=== PATIENT | male | born 1960 | race African-American/Black ===

== ENCOUNTER 2017-06-19 23:11 | Inpatient (IN) | payer OTHER ==
[2017-06-20 01:10] LABS: ADD MAN DIFF? NO
[2017-06-20 01:26] LABS: WHITE BLOOD COUNT 5.4 10^3/ul (4.8-10.8)
[2017-06-20 01:26] LABS: BASOPHILS % 0.2 % (0.0-2.0); EOSINOPHILS % 0.7 % (0.0-7.0); HEMATOCRIT 37.3 % (42.0-52.0); HEMOGLOBIN 12.4 g/dl (14.0-18.0); LYMPHOCYTES # 1.3 10^3/ul (0.8-2.9); LYMPHOCYTES % 23.9 % (15.0-51.0); MEAN CORPUSCULAR HGB CONC 33.2 g/dl (32.0-37.0); MEAN CORPUSCULAR VOLUME 93.3 fl (82.0-101.0); MEAN PLATELET VOLUME 11.4 fl (7.4-10.4); MONOCYTE # 0.5 10^3/ul (0.3-0.9); MONOCYTES % 9.7 % (0.0-11.0); NEUTROPHIL # 3.5 10^3/ul (1.6-7.5); NEUTROPHILS % 65.3 % (39.0-77.0); PLATELET COUNT 177 10^3/UL (140-415); RED CELL DISTRIBUTION WIDTH 12.7 % (11.5-14.5)
[2017-06-20 01:41] LABS: PROTIME 13.3 Sec (11.9-14.9)
[2017-06-20 01:42] LABS: PARTIAL THROMBOPLASTIN TIME 37.4 Sec (25.0-35.0)
[2017-06-20 01:43] LABS: ALBUMIN/GLOBULIN RATIO 1.37; ANION GAP 11 (8-16)
[2017-06-20 01:48] LABS: ALANINE AMINOTRANSFERASE 32 IU/L (13-69); ALKALINE PHOSPHATASE 77 IU/L (42-121); ASPARTATE AMINO TRANSFERASE 31 IU/L (15-46); BILIRUBIN,INDIRECT 0.1 mg/dl (0-1.1); BILIRUBIN,TOTAL 0.1 mg/dl (0.2-1.3); BLOOD UREA NITROGEN 19 mg/dl (7-20); CALCIUM 9.4 mg/dl (8.4-10.2); CARBON DIOXIDE 31 mmol/L (21-31); CHLORIDE 104 mmol/L (97-110); CREATININE 1.06 mg/dl (0.61-1.24); GLUCOSE 98 mg/dl (70-220); SODIUM 142 mmol/L (135-144); TOTAL PROTEIN 6.9 g/dl (6.1-8.1)
[2017-06-20] MEDS ORDERED: LORAZEPAM 2 MG INJ IV (05:30)
[2017-06-20] MEDS ORDERED: HYDROmorphONE 0.5 MG/0.5 ML SYG IV (05:30)
[2017-06-20] MEDS ORDERED: HYDROCODONE/APAP (5/325) TAB PO (05:30)
[2017-06-20] MEDS ORDERED: NACL 0.9% 3 ML SYG IV (05:30)
[2017-06-20] MEDS ORDERED: ZOLPIDEM 5 MG TAB PO (05:30)
[2017-06-20] MEDS: SOD CHLORIDE 0.9% 1,000 ML IV ×3 (07:45→20:49)
[2017-06-20] MEDS: ONDANSETRON 4 MG INJ IV (08:43)
[2017-06-20] MEDS: FAMOTIDINE 20 MG INJ IV ×2 (08:43→20:36)
[2017-06-20] MEDS: HYDROmorphONE 0.5 MG/0.5 ML SYG IV ×3 (08:44→20:50)
[2017-06-20 12:53] LABS: HEMATOCRIT 38.6 % (42.0-52.0); HEMOGLOBIN 12.8 g/dl (14.0-18.0)
[2017-06-20] MEDS: DOCUSATE SODIUM 100 MG CAP PO (20:50)
[2017-06-21] MEDS: HYDROmorphONE 0.5 MG/0.5 ML SYG IV ×3 (04:24→23:48)
[2017-06-21 06:23] LABS: ADD MAN DIFF? NO
[2017-06-21] MEDS: SOD CHLORIDE 0.9% 1,000 ML IV ×2 (06:34→21:58)
[2017-06-21 06:35] LABS: HEMATOCRIT 39.1 % (42.0-52.0); HEMOGLOBIN 13.1 g/dl (14.0-18.0); MEAN CORPUSCULAR HEMOGLOBIN 31.4 pg (29.0-33.0); MEAN CORPUSCULAR HGB CONC 33.5 g/dl (32.0-37.0); MEAN CORPUSCULAR VOLUME 93.8 fl (82.0-101.0); PLATELET COUNT 181 10^3/UL (140-415); RED BLOOD COUNT 4.17 10^6/ul (4.70-6.10); RED CELL DISTRIBUTION WIDTH 12.3 % (11.5-14.5)
[2017-06-21 06:35] LABS: WHITE BLOOD COUNT 6.3 10^3/ul (4.8-10.8)
[2017-06-21 06:36] LABS: BASOPHILS % 0.2 % (0.0-2.0); EOSINOPHILS % 0.6 % (0.0-7.0); LYMPHOCYTES # 1.7 10^3/ul (0.8-2.9); LYMPHOCYTES % 26.2 % (15.0-51.0); MEAN PLATELET VOLUME 11.9 fl (7.4-10.4); MONOCYTE # 0.6 10^3/ul (0.3-0.9); MONOCYTES % 9.5 % (0.0-11.0); NEUTROPHILS % 63.3 % (39.0-77.0)
[2017-06-21 06:56] LABS: ALANINE AMINOTRANSFERASE 34 IU/L (13-69); ALBUMIN 3.7 g/dl (3.3-4.9); ALBUMIN/GLOBULIN RATIO 1.15; ALKALINE PHOSPHATASE 70 IU/L (42-121); ANION GAP 11 (8-16); ASPARTATE AMINO TRANSFERASE 30 IU/L (15-46); BILIRUBIN,INDIRECT 0.3 mg/dl (0-1.1); BILIRUBIN,TOTAL 0.3 mg/dl (0.2-1.3); BLOOD UREA NITROGEN 9 mg/dl (7-20); CARBON DIOXIDE 32 mmol/L (21-31); CHLORIDE 103 mmol/L (97-110); CHOLESTEROL 189 mg/dl (100-200); CREATININE 0.77 mg/dl (0.61-1.24); GLUCOSE 110 mg/dl (70-220); HDL CHOLESTEROL 61 mg/dl (28-71); LDL CHOLESTEROL,CALCULATED 119 mg/dl; POTASSIUM 4.1 mmol/L (3.5-5.1); SODIUM 142 mmol/L (135-144); TOTAL PROTEIN 6.9 g/dl (6.1-8.1); TRIGLYCERIDES 45 mg/dl (0-149)
[2017-06-21 06:58] LABS: ANION GAP 12 (8-16); BLOOD UREA NITROGEN 10 mg/dl (7-20); CALCIUM 8.6 mg/dl (8.4-10.2); CARBON DIOXIDE 31 mmol/L (21-31); CHLORIDE 103 mmol/L (97-110); GLUCOSE 108 mg/dl (70-220); POTASSIUM 4.2 mmol/L (3.5-5.1); SODIUM 142 mmol/L (135-144)
[2017-06-21] MEDS: ACETAMINOPHEN 325 MG TAB PO (08:15)
[2017-06-21] MEDS: FAMOTIDINE 20 MG INJ IV ×2 (08:16→21:58)
[2017-06-21] MEDS: LIDOCAINE 1% (MPF) 5 ML VIAL SC (09:56)
[2017-06-21] MEDS ORDERED: LORAZEPAM 2 MG INJ IV (11:30)
[2017-06-22 05:17] LABS: ADD MAN DIFF? NO
[2017-06-22 05:20] LABS: BASOPHILS % 0.2 % (0.0-2.0); EOSINOPHILS % 0.9 % (0.0-7.0); HEMATOCRIT 37.9 % (42.0-52.0); HEMOGLOBIN 12.5 g/dl (14.0-18.0); LYMPHOCYTES # 1.1 10^3/ul (0.8-2.9); LYMPHOCYTES % 24.9 % (15.0-51.0); MEAN CORPUSCULAR HEMOGLOBIN 30.7 pg (29.0-33.0); MEAN CORPUSCULAR VOLUME 93.1 fl (82.0-101.0); MEAN PLATELET VOLUME 11.8 fl (7.4-10.4); MONOCYTE # 0.6 10^3/ul (0.3-0.9); MONOCYTES % 12.6 % (0.0-11.0); NEUTROPHIL # 2.7 10^3/ul (1.6-7.5); NEUTROPHILS % 61.2 % (39.0-77.0); PLATELET COUNT 168 10^3/UL (140-415); RED BLOOD COUNT 4.07 10^6/ul (4.70-6.10); RED CELL DISTRIBUTION WIDTH 12.3 % (11.5-14.5)
[2017-06-22 05:20] LABS: WHITE BLOOD COUNT 4.5 10^3/ul (4.8-10.8)
[2017-06-22 05:49] LABS: ALANINE AMINOTRANSFERASE 32 IU/L (13-69); ALBUMIN 3.8 g/dl (3.3-4.9); ALBUMIN/GLOBULIN RATIO 1.31; ALKALINE PHOSPHATASE 71 IU/L (42-121); ANION GAP 12 (8-16); ASPARTATE AMINO TRANSFERASE 28 IU/L (15-46); BILIRUBIN,INDIRECT 0.3 mg/dl (0-1.1); BILIRUBIN,TOTAL 0.3 mg/dl (0.2-1.3); BLOOD UREA NITROGEN 9 mg/dl (7-20); CALCIUM 8.6 mg/dl (8.4-10.2); CARBON DIOXIDE 32 mmol/L (21-31); CHLORIDE 102 mmol/L (97-110); CREATININE 0.79 mg/dl (0.61-1.24); GLUCOSE 112 mg/dl (70-220); POTASSIUM 3.8 mmol/L (3.5-5.1); SODIUM 142 mmol/L (135-144); TOTAL PROTEIN 6.7 g/dl (6.1-8.1)
[2017-06-22] MEDS: SOD CHLORIDE 0.9% 1,000 ML IV ×2 (06:34→16:52)
[2017-06-22] MEDS: GUAIFENESIN/CODEINE 5ML CUP PO ×2 (06:36→16:59)
[2017-06-22] MEDS: HYDROmorphONE 0.5 MG/0.5 ML SYG IV ×4 (06:37→23:01)
[2017-06-22] MEDS: FAMOTIDINE 20 MG INJ IV ×2 (09:05→20:25)
[2017-06-22] MEDS: ALBUTEROL/IPRATROPIUM (NEB) 3 ML AMP HHN ×2 (09:25→20:07)
[2017-06-22] MEDS: DEXAMETHASONE 4 MG TAB PO (16:52)
[2017-06-23] MEDS: SOD CHLORIDE 0.9% 1,000 ML IV ×2 (05:11→14:35)
[2017-06-23] MEDS: DEXAMETHASONE 4 MG TAB PO ×2 (05:11→20:31)
[2017-06-23] MEDS: HYDROmorphONE 0.5 MG/0.5 ML SYG IV ×5 (05:12→22:08)
[2017-06-23] MEDS: FAMOTIDINE 20 MG INJ IV ×2 (08:32→20:31)
[2017-06-23] MEDS: GUAIFENESIN/CODEINE 5ML CUP PO ×2 (09:56→18:21)
[2017-06-23] MEDS: ALBUTEROL/IPRATROPIUM (NEB) 3 ML AMP HHN ×2 (10:07→16:05)
[2017-06-23] MEDS ORDERED: DIPHENHYDRAMINE 50 MG INJ IV (11:00)
[2017-06-23] MEDS ORDERED: ONDANSETRON INJ 16 MG, DEXAMETHASONE 4 MG/ML 10 MG in SOD CHLORIDE 0.9% 50 ML IVPB (11:00)
[2017-06-23] MEDS: ONDANSETRON INJ 16 MG, DEXAMETHASONE 4 MG/ML 10 MG in SOD CHLORIDE 0.9% 50 ML IVPB (17:19)
[2017-06-23] MEDS: DIPHENHYDRAMINE 50 MG INJ IV (17:29)
[2017-06-23] MEDS: DOCETAXEL IV (17:51)
[2017-06-23] MEDS: DEXTROSE 5% IV (17:51)
[2017-06-23] MEDS: CISPLATIN IVPB (20:49)
[2017-06-23] MEDS: SOD CHLORIDE 0.9% IVPB (20:49)
[2017-06-24] MEDS: SOD CHLORIDE 0.9% IV (00:02)
[2017-06-24] MEDS: FLUOROURACIL IV (00:02)
[2017-06-24] MEDS: ALBUTEROL/IPRATROPIUM (NEB) 3 ML AMP HHN ×3 (00:41→23:44)
[2017-06-24] MEDS: GUAIFENESIN/CODEINE 5ML CUP PO ×2 (01:57→12:59)
[2017-06-24] MEDS: HYDROmorphONE 0.5 MG/0.5 ML SYG IV ×4 (02:00→18:38)
[2017-06-24] MEDS: SOD CHLORIDE 0.9% 1,000 ML IV ×3 (03:00→23:27)
[2017-06-24 05:43] LABS: WHITE BLOOD COUNT 4.9 10^3/ul (4.8-10.8)
[2017-06-24 05:43] LABS: ADD MAN DIFF? NO; HEMATOCRIT 37.2 % (42.0-52.0); HEMOGLOBIN 12.3 g/dl (14.0-18.0); LYMPHOCYTES # 0.6 10^3/ul (0.8-2.9); LYMPHOCYTES % 12.2 % (15.0-51.0); MEAN CORPUSCULAR HGB CONC 33.1 g/dl (32.0-37.0); MEAN CORPUSCULAR VOLUME 93.7 fl (82.0-101.0); MEAN PLATELET VOLUME 12.4 fl (7.4-10.4); MONOCYTE # 0.1 10^3/ul (0.3-0.9); MONOCYTES % 2.2 % (0.0-11.0); NEUTROPHIL # 4.2 10^3/ul (1.6-7.5); NEUTROPHILS % 85.4 % (39.0-77.0); PLATELET COUNT 171 10^3/UL (140-415); RED BLOOD COUNT 3.97 10^6/ul (4.70-6.10); RED CELL DISTRIBUTION WIDTH 12.4 % (11.5-14.5)
[2017-06-24 06:28] LABS: ALANINE AMINOTRANSFERASE 27 IU/L (13-69); ALBUMIN/GLOBULIN RATIO 1.37; ALKALINE PHOSPHATASE 75 IU/L (42-121); ANION GAP 13 (8-16); ASPARTATE AMINO TRANSFERASE 25 IU/L (15-46); BLOOD UREA NITROGEN 9 mg/dl (7-20); CALCIUM 8.4 mg/dl (8.4-10.2); CARBON DIOXIDE 31 mmol/L (21-31); CHLORIDE 105 mmol/L (97-110); CREATININE 0.72 mg/dl (0.61-1.24); GLUCOSE 132 mg/dl (70-220); POTASSIUM 4.2 mmol/L (3.5-5.1); SODIUM 145 mmol/L (135-144); TOTAL PROTEIN 6.9 g/dl (6.1-8.1)
[2017-06-24 06:35] LABS: PHOSPHORUS 4.2 mg/dl (2.5-4.9)
[2017-06-24] MEDS: FAMOTIDINE 20 MG INJ IV ×2 (09:34→21:28)
[2017-06-24] MEDS: DEXAMETHASONE 4 MG TAB PO ×2 (09:34→21:27)
[2017-06-24] MEDS: DIPHENHYD/MYLANTA/LIDO (PO SYG) PO ×2 (13:59→23:40)
[2017-06-24] MEDS: DIPHENHYDRAMINE 50 MG INJ IV (23:27)
[2017-06-24] MEDS: ONDANSETRON INJ 16 MG, DEXAMETHASONE 4 MG/ML 10 MG in SOD CHLORIDE 0.9% 50 ML IVPB (23:28)
[2017-06-25] MEDS: FLUOROURACIL IV (00:24)
[2017-06-25] MEDS: SOD CHLORIDE 0.9% IV (00:24)
[2017-06-25 05:08] LABS: ADD MAN DIFF? NO
[2017-06-25 05:16] LABS: WHITE BLOOD COUNT 5.7 10^3/ul (4.8-10.8)
[2017-06-25 05:16] LABS: ABNORMAL IP MESSAGE 1; HEMATOCRIT 37.6 % (42.0-52.0); HEMOGLOBIN 12.6 g/dl (14.0-18.0); LYMPHOCYTES # 0.4 10^3/ul (0.8-2.9); LYMPHOCYTES % 7.3 % (15.0-51.0); MEAN CORPUSCULAR HGB CONC 33.5 g/dl (32.0-37.0); MEAN CORPUSCULAR VOLUME 92.6 fl (82.0-101.0); MEAN PLATELET VOLUME 12.5 fl (7.4-10.4); MONOCYTE # 0.2 10^3/ul (0.3-0.9); MONOCYTES % 3.1 % (0.0-11.0); NEUTROPHIL # 5.1 10^3/ul (1.6-7.5); NEUTROPHILS % 89.3 % (39.0-77.0); PLATELET COUNT 135 10^3/UL (140-415); POSITIVE DIFF @See below; RED BLOOD COUNT 4.06 10^6/ul (4.70-6.10); RED CELL DISTRIBUTION WIDTH 12.5 % (11.5-14.5)
[2017-06-25 05:36] LABS: ANION GAP 9 (8-16); BLOOD UREA NITROGEN 14 mg/dl (7-20); CALCIUM 8.6 mg/dl (8.4-10.2); CARBON DIOXIDE 34 mmol/L (21-31); CHLORIDE 102 mmol/L (97-110); CREATININE 0.79 mg/dl (0.61-1.24); GLUCOSE 134 mg/dl (70-220); POTASSIUM 4.3 mmol/L (3.5-5.1); SODIUM 141 mmol/L (135-144)
[2017-06-25 05:37] LABS: MAGNESIUM 2.1 mg/dl (1.7-2.5)
[2017-06-25 05:37] LABS: PHOSPHORUS 3.8 mg/dl (2.5-4.9)
[2017-06-25] MEDS: SOD CHLORIDE 0.9% 1,000 ML IV ×3 (09:00→19:00)
[2017-06-25] MEDS: DEXAMETHASONE 4 MG TAB PO ×2 (09:00→14:14)
[2017-06-25] MEDS: HYDROmorphONE 0.5 MG/0.5 ML SYG IV ×4 (09:01→23:22)
[2017-06-25] MEDS: FAMOTIDINE 20 MG INJ IV ×2 (09:02→21:42)
[2017-06-25] MEDS ORDERED: LIDOCAINE 1% (MPF) 30 ML INJ (10:29)
[2017-06-25] MEDS ORDERED: MIDAZOLAM 1 MG/ML 2 ML INJ (10:58)
[2017-06-25] MEDS ORDERED: FENTAnyl 50 MCG/ML VIAL (11:04)
[2017-06-25] MEDS ORDERED: hydrALAzine 20 MG INJ (11:25)
[2017-06-25] MEDS: BUPIVACAINE 0.5% (SDV) 30 ML INJ (11:39)
[2017-06-25] MEDS: HEPARIN 1000 UNITS/ML 10 ML INJ (11:40)
[2017-06-25] MEDS: LIDOCAINE 1%/EPI 30 ML INJ (11:40)
[2017-06-25] MEDS ORDERED: HYDROmorphONE (0.2 MG/ML) 10ML SYG IV (13:00)
[2017-06-25] MEDS: DIPHENHYD/MYLANTA/LIDO (PO SYG) PO (14:14)
[2017-06-25] MEDS: GUAIFENESIN/CODEINE 5ML CUP PO (14:22)
[2017-06-25] MEDS: DIPHENHYDRAMINE 50 MG INJ IV (23:22)
[2017-06-25] MEDS: ONDANSETRON INJ 16 MG, DEXAMETHASONE 4 MG/ML 10 MG in SOD CHLORIDE 0.9% 50 ML IVPB (23:22)
[2017-06-26] MEDS: ALBUTEROL/IPRATROPIUM (NEB) 3 ML AMP HHN ×5 (00:41→23:01)
[2017-06-26] MEDS: SOD CHLORIDE 0.9% IV (01:13)
[2017-06-26] MEDS: FLUOROURACIL IV (01:13)
[2017-06-26] MEDS: SOD CHLORIDE 0.9% 1,000 ML IV ×2 (02:15→12:14)
[2017-06-26 05:39] LABS: ADD MAN DIFF? NO
[2017-06-26 05:43] LABS: ABNORMAL IP MESSAGE 1; HEMATOCRIT 37.9 % (42.0-52.0); HEMOGLOBIN 12.5 g/dl (14.0-18.0); LYMPHOCYTES # 0.3 10^3/ul (0.8-2.9); LYMPHOCYTES % 6.2 % (15.0-51.0); MEAN CORPUSCULAR HEMOGLOBIN 30.6 pg (29.0-33.0); MEAN CORPUSCULAR VOLUME 92.9 fl (82.0-101.0); MEAN PLATELET VOLUME 13.2 fl (7.4-10.4); MONOCYTE # 0.1 10^3/ul (0.3-0.9); MONOCYTES % 1.2 % (0.0-11.0); NEUTROPHIL # 4.6 10^3/ul (1.6-7.5); PLATELET COUNT 111 10^3/UL (140-415); POSITIVE DIFF @See below; RED BLOOD COUNT 4.08 10^6/ul (4.70-6.10); RED CELL DISTRIBUTION WIDTH 12.4 % (11.5-14.5)
[2017-06-26 06:26] LABS: PHOSPHORUS 3.3 mg/dl (2.5-4.9)
[2017-06-26 06:34] LABS: ANION GAP 12 (8-16); BLOOD UREA NITROGEN 14 mg/dl (7-20); CALCIUM 8.3 mg/dl (8.4-10.2); CARBON DIOXIDE 31 mmol/L (21-31); CHLORIDE 100 mmol/L (97-110); CREATININE 0.73 mg/dl (0.61-1.24); GLUCOSE 153 mg/dl (70-220); SODIUM 139 mmol/L (135-144)
[2017-06-26] MEDS: FAMOTIDINE 20 MG INJ IV ×2 (09:40→20:38)
[2017-06-26] MEDS: HYDROmorphONE 0.5 MG/0.5 ML SYG IV ×4 (09:43→23:57)
[2017-06-26] MEDS: MAGNESIUM HYDROXIDE 30ML CUP PO (15:15)
[2017-06-26] MEDS: DIPHENHYD/MYLANTA/LIDO (PO SYG) PO ×2 (18:38→23:57)
[2017-06-26] MEDS: ONDANSETRON INJ 16 MG, DEXAMETHASONE 4 MG/ML 10 MG in SOD CHLORIDE 0.9% 50 ML IVPB (23:57)
[2017-06-26] MEDS: DIPHENHYDRAMINE 50 MG INJ IV (23:58)
[2017-06-27] MEDS: SOD CHLORIDE 0.9% IV (00:55)
[2017-06-27] MEDS: FLUOROURACIL IV (00:55)
[2017-06-27] MEDS: SOD CHLORIDE 0.9% 1,000 ML IV ×3 (02:45→21:23)
[2017-06-27] MEDS: HYDROmorphONE 0.5 MG/0.5 ML SYG IV ×2 (05:20→12:27)
[2017-06-27] MEDS: CIPROFLOXACIN 500 MG TAB PO ×2 (05:22→17:07)
[2017-06-27 05:47] LABS: ADD MAN DIFF? NO
[2017-06-27 05:56] LABS: ABNORMAL IP MESSAGE 1; HEMATOCRIT 36.3 % (42.0-52.0); LYMPHOCYTES # 0.4 10^3/ul (0.8-2.9); LYMPHOCYTES % 6.6 % (15.0-51.0); MEAN CORPUSCULAR HEMOGLOBIN 30.8 pg (29.0-33.0); MEAN CORPUSCULAR HGB CONC 33.1 g/dl (32.0-37.0); MEAN CORPUSCULAR VOLUME 93.1 fl (82.0-101.0); MEAN PLATELET VOLUME 12.8 fl (7.4-10.4); MONOCYTE # 0.2 10^3/ul (0.3-0.9); MONOCYTES % 2.6 % (0.0-11.0); NEUTROPHIL # 5.6 10^3/ul (1.6-7.5); NEUTROPHILS % 90.5 % (39.0-77.0); PLATELET COUNT 114 10^3/UL (140-415); POSITIVE DIFF @See below; RED CELL DISTRIBUTION WIDTH 12.2 % (11.5-14.5)
[2017-06-27 05:56] LABS: WHITE BLOOD COUNT 6.2 10^3/ul (4.8-10.8)
[2017-06-27 06:23] LABS: PHOSPHORUS 2.9 mg/dl (2.5-4.9)
[2017-06-27 06:23] LABS: ANION GAP 9 (8-16); BLOOD UREA NITROGEN 17 mg/dl (7-20); CARBON DIOXIDE 35 mmol/L (21-31); CHLORIDE 99 mmol/L (97-110); CREATININE 0.75 mg/dl (0.61-1.24); GLUCOSE 157 mg/dl (70-220); SODIUM 139 mmol/L (135-144)
[2017-06-27] MEDS: FAMOTIDINE 20 MG INJ IV ×2 (08:30→21:17)
[2017-06-27] MEDS: ONDANSETRON INJ 16 MG, DEXAMETHASONE 4 MG/ML 10 MG in SOD CHLORIDE 0.9% 50 ML IVPB (11:00)
[2017-06-28] MEDS: DIPHENHYDRAMINE 50 MG INJ IV (00:23)
[2017-06-28] MEDS: FLUOROURACIL IV (00:40)
[2017-06-28] MEDS: SOD CHLORIDE 0.9% IV (00:40)
[2017-06-28 04:55] LABS: ADD MAN DIFF? NO
[2017-06-28 04:57] LABS: ABNORMAL IP MESSAGE 1; EOSINOPHILS % 0.2 % (0.0-7.0); HEMATOCRIT 36.2 % (42.0-52.0); HEMOGLOBIN 12.4 g/dl (14.0-18.0); LYMPHOCYTES # 0.4 10^3/ul (0.8-2.9); LYMPHOCYTES % 9.2 % (15.0-51.0); MEAN CORPUSCULAR HEMOGLOBIN 31.3 pg (29.0-33.0); MEAN CORPUSCULAR HGB CONC 34.3 g/dl (32.0-37.0); MEAN CORPUSCULAR VOLUME 91.4 fl (82.0-101.0); MEAN PLATELET VOLUME 13.3 fl (7.4-10.4); MONOCYTE # 0.1 10^3/ul (0.3-0.9); MONOCYTES % 1.5 % (0.0-11.0); NEUTROPHIL # 4.1 10^3/ul (1.6-7.5); NEUTROPHILS % 88.7 % (39.0-77.0); PLATELET COUNT 145 10^3/UL (140-415); POSITIVE DIFF @See below; RED BLOOD COUNT 3.96 10^6/ul (4.70-6.10); RED CELL DISTRIBUTION WIDTH 11.9 % (11.5-14.5)
[2017-06-28 04:57] LABS: WHITE BLOOD COUNT 4.6 10^3/ul (4.8-10.8)
[2017-06-28 05:27] LABS: ANION GAP 9 (8-16); BLOOD UREA NITROGEN 14 mg/dl (7-20); CALCIUM 8.1 mg/dl (8.4-10.2); CARBON DIOXIDE 34 mmol/L (21-31); CHLORIDE 99 mmol/L (97-110); GLUCOSE 165 mg/dl (70-220); SODIUM 138 mmol/L (135-144)
[2017-06-28] MEDS: CIPROFLOXACIN 500 MG TAB PO (05:48)
[2017-06-28] MEDS: SOD CHLORIDE 0.9% 1,000 ML IV (07:00)
[2017-06-28] MEDS: FAMOTIDINE 20 MG INJ IV (08:27)
[2017-06-28] MEDS ORDERED: FILGRASTIM 480 MCG INJ SC (13:00)
[2017-06-28] MEDS: HEPARIN (10 UNITS/ML) 5ML SYG CATHETER (13:51)
== END 2017-06-28 14:02 | disposition home or self-care (01) | DRG 147 ==
LOC: E/R 23:11 → MS4 06-20 05:21 → MS1 06-20 20:00
PROC: 0JH63XZ Insertion of Tunneled Vascular Access Device into Chest Subcutaneous Tissue and Fascia, Percutaneous Approach (ICD-10-PCS; 2017-06-25 10:30)
PROC: 05HN33Z Insertion of Infusion Device into Left Internal Jugular Vein, Percutaneous Approach (ICD-10-PCS; 2017-06-25 10:30)
PROC: 02HV33Z Insertion of Infusion Device into Superior Vena Cava, Percutaneous Approach (ICD-10-PCS; principal; 2017-06-25 10:56)
PROC: 3E03305 Introduction of Other Antineoplastic into Peripheral Vein, Percutaneous Approach (ICD-10-PCS; 2017-06-25 10:56)
DX: C32.1 Malignant neoplasm of supraglottis (principal); R04.2 Hemoptysis; N17.9 Acute kidney failure, unspecified; E86.0 Dehydration; K12.30 Oral mucositis (ulcerative), unspecified; R13.10 Dysphagia, unspecified; D50.9 Iron deficiency anemia, unspecified; R59.0 Localized enlarged lymph nodes; Z87.891 Personal history of nicotine dependence
CPT/HCPCS: 36415; 36561; 36569; 71045; 76937; 76942; 80048; 80053; 80061; 83735; 84100; 85014; 85018; 85025; 85384; 85610; 85730; 86850; 86900; 86901; 93005; 93306; 94640; 94664; 96374; 96375; 99285-25; J9190